=== PATIENT | male | born 1965 | race Caucasian/White ===

== ENCOUNTER 2017-09-20 07:50 | Emergency (ER) | payer MEDICAID ==
[2017-09-20 07:56] VITALS: TEMP 97.7
--- NOTE | 2017-09-20 08:20 | EDPHY ---
H & P Stated Complaint: slipped on ice hit head/+loc blood in l ear Time Seen by Provider: 09/20/17 08:01 HPI/ROS: CHIEF COMPLAINT: Fall, loss of consciousness HISTORY OF PRESENT ILLNESS: This is a 52-year-old male who fell 2 hr ago. He slipped on the ice while gathering wood outside, struck his head, and lost consciousness. When he awoke there was blood in his left ear. He has some left ear pain and pain behind the left ear in the region of the mastoid process. He denies headache, change in vision, confusion (but feels "off"), numbness, and weakness. He denies other injuries. He has not taken any medication for pain. REVIEW OF SYSTEMS: A ten point review of systems was performed and is negative with the exception of the items mentioned in the HPI. Past medical history: Diagnosed with hypertension but voluntarily stopped taking his medications Past surgical history: Negative Family history: Coronary artery disease, hypertension Social history: He lives with his . He he rolls his own cigarettes and chews tobacco. He drinks 1 6 pack nightly. 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 General Appearance: Alert. Vital signs reviewed. Blood pressure 126/80. Head: Mild tenderness left mastoid process, no palpable skull deformity. Eyes: Pupils equal and round, no conjunctival injection, no discharge. Anicteric. ENT, Mouth: Mucous membranes are moist, no oropharyngeal erythema or edema. Edentulous upper. Neck: No lymphadenopathy, supple. Nontender to palpation over the cervical spine in the midline and no pain with active range of motion of his neck. Right and left tympanic membranes are normal. No hemotympanum. There is a 1/3 cm superficial laceration of the left pinna with some light bleeding. Respiratory: Lungs have somewhat distant breath sounds; no wheezes, rales, or rhonchi. Cardiovascular: Regular rate and rhythm; no murmur, rub, or gallop. Gastrointestinal: Abdomen is soft and nontender, no masses or organomegaly, bowel sounds normal. Skin: Warm and dry, no rashes on exposed skin, normal color. Back: Nontender to palpation over the thoracolumbar spine. No CVAT. Extremities: No lower extremity edema, no calf tenderness or swelling. No long bone tenderness. Neurological: Alert and oriented. Moving all four extremities easily and equally. Cranial nerves II through XII are examined and are intact (visual acuity not tested). Strength is 5 over 5 bilaterally with testing of all major motor groups. Sensation is intact to light touch over all 4 extremities. Deep tendon reflexes are 2+ in the biceps and knees bilaterally. Gait is normal. Psychiatric: Normal affect. - Personal History Current Tetanus/Diphtheria Vaccine: Yes - Medical/Surgical History Hx Asthma: No Hx Chronic Respiratory Disease: No Hx Diabetes: No Hx Cardiac Disease: No Hx Renal Disease: No Hx Cirrhosis: No Hx Alcoholism: No Hx HIV/AIDS: No Hx Splenectomy or Spleen Trauma: No Other PMH: denies - Social History Smoking Status: Current every day smoker Constitutional: Initial Vital Signs Temperature (C) 36.5 C 09/20/17 07:53 Heart Rate 77 09/20/17 07:53 Respiratory Rate 18 09/20/17 07:53 Blood Pressure 126/80 H 09/20/17 07:53 O2 Sat (%) 97 09/20/17 07:53 O2 Delivery Mode Room Air Allergies/Adverse Reactions: No Known Allergies Allergy (Verified 09/20/17 07:52) Home Medications: Medication Instructions Recorded No Medications [NO HOME 1 ea [facility] [place] 02/24/12 MEDICATIONS] ED Images - Head Ear Left/Right: 1 - superficial laceration Medical Decision Making - Diagnostics Imaging: Discussed imaging studies w/ call centre supervisor Radiologist ED Course/Re-evaluation: 52 YO male who fell with LOC. CT scan without acute findings, no basilar or other skull fracture identified. I have reviewed the CT and discussed it with the radiologist. Patient has been stable in the ED. The ear laceration is superficial and does not require suturing. The laceration was cleaned and antibiotic ointment applied. Wound care reviewed with patient. Concussion care reviewed with patient and his . Importance of rest emphasized, as he wants to return to work tomorrow. Differential Diagnosis: I considered a ddx that includes but is not limited to skull fracture, ICH, concussion, cervical spine injury,laceration, abrasion, long bone injury, intrathoracic and intra-abdominal injury. Departure - Departure Disposition: Home, Routine, Self-Care Clinical Impression: Concussion Qualifiers: Encounter type: initial encounter Loss of consciousness presence/duration: with LOC of 30 min or less Qualified Code(s): S06.0X1A - Concussion with loss of consciousness of 30 minutes or less, initial encounter Condition: Good Instructions: Concussion (ED) Additional Instructions: Take it easy today. You should not work again until you feel entirely normal. Take tylenol, 650 mg, every 4-6 hours for pain. The cut inside your left ear does not need stitches. Keep that area clean and dry. Referrals: [facility],. [Clinic] - As per Instructions Stand Alone Forms: Work Excuse
[2017-09-20 09:38] VITALS: BP 107/72; PULSE 65; RESP 16; O2SAT 94
== END 2017-09-20 09:37 | disposition home or self-care (01) ==
DX: S06.0X1A Concussion with loss of consciousness of 30 minutes or less, initial encounter (principal); I10 Essential (primary) hypertension; F17.210 Nicotine dependence, cigarettes, uncomplicated; W00.0XXA Fall on same level due to ice and snow, initial encounter; Y93.89 Activity, other specified